=== PATIENT | female | born 1995 | race Caucasian/White ===

== ENCOUNTER 2017-03-05 08:53 | Inpatient (IN) | payer BC ==
[~2017-03-05 08:53] MED LIST: Buffered Lidocaine 0.9% SYRIN* 5 ML/SYR SYRINGE INTRADERM ONE; Buffered Lidocaine 0.9% SYRIN* 5 ML/SYR SYRINGE ONE; Clindamycin 900 MG IVPREMIX(* 900 MG/50 ML SDV IV ONE; Famotidine TAB* 20 MG ONE; Famotidine TAB* 20 MG PO ONE; Heparin VIAL(*) 5000 UNITS/ML VIAL (FIVE THOUSAND) ONE; Ibuprofen TAB* 400 MG ONE; Ibuprofen TAB* 400 MG PO ONE; Metoclopramide TAB* 10 MG ONE; Metoclopramide TAB* 10 MG PO ONE; Scopolamine 1.5 mg* PATCH ONE; Scopolamine 1.5 mg* PATCH TRANSDERM ONE; Sodium Citrate/Citric Acid* 15 ML UDC ONE; Sodium Citrate/Citric Acid* 15 ML UDC PO ONE; ceFAZolin 1 GM ADVAN(*) 1 GM ADDV.VIAL IVPB ONE; ceFAZolin 2 GM PREMIX (*) 50 ML IVPB ONE
[2017-03-05] MEDS ORDERED: Bupivacaine 0.25% SDV* 30 ML ONE (11:45)
[2017-03-05] MEDS ORDERED: fentaNYL* 50 MCG/ML 2 ML VIAL (100 MCG VIAL) ONE ×5 (11:52→15:00)
[2017-03-05] MEDS ORDERED: Midazolam* 1 MG/ML 2 ML VIAL (2 MG) ONE (11:52)
[2017-03-05] MEDS ORDERED: Dexamethasone IV* 4 MG/ML 1 ML (4 MG) ONE (11:57)
[2017-03-05] MEDS ORDERED: Propofol* 10 MG/ML 20 ML BTL IV PUSH ONE ×2 (11:57→13:04)
[2017-03-05] MEDS ORDERED: Atracurium* 10 MG/ML 10 ML VIAL ONE (11:57)
[2017-03-05] MEDS ORDERED: Lidocaine 2% PF * 5 ML VIAL ONE (11:57)
[2017-03-05] MEDS ORDERED: EPHEDrine (Pressors)* 50 MG/ML VIAL ONE (12:47)
[2017-03-05] MEDS ORDERED: DiMENhydriNATE IV* 50 MG/ML VIAL IV PUSH PRN (13:10)
[2017-03-05] MEDS ORDERED: Ketorolac INJ* 30 MG/ML 1 ML VIAL IV PRN (13:10)
[2017-03-05] MEDS ORDERED: Atropine 1MG/ML INJ* 1 ML VIAL ONE (13:31)
[2017-03-05] MEDS ORDERED: LORazepam INJ* 2 MG/ML 1 ML VIAL IV PUSH PRN (13:51)
--- NOTE | 2017-03-05 13:55 | PN ---
Progress Note - Progress Note Date of Service: 03/05/17 Note: Brief Operative Nte: Pre-op: Morbid obesity Post-op; Same Procedure: Laparoscopic sleeve gasterectomy Surgeon: Dr. Tucker Edge Trimmer: Fredy Bowens Fluids: LR 1000 cc EBL: Minimal Catheter: None Drains: None Specimen: Portion of stomach Findings: See dictated op note
[2017-03-05] MEDS ORDERED: HYDROmorphone* 1 MG/ML 1 ML SYR ONE ×3 (13:57→17:02)
[2017-03-05] MEDS ORDERED: Ketorolac INJ* 30 MG/ML 1 ML VIAL ONE (13:58)
[2017-03-05] MEDS ORDERED: Ondansetron INJ* 2 MG/ML VIAL ONE (13:58)
[2017-03-05] MEDS: Ondansetron INJ* 2 MG/ML VIAL IV PRN ×2 (13:59→19:38)
[2017-03-05] MEDS: fentaNYL* 50 MCG/ML 2 ML VIAL (100 MCG VIAL) IV PRN ×5 (14:00→15:01)
[2017-03-05] MEDS: HYDROmorphone* 1 MG/ML 1 ML SYR IV PRN ×7 (14:01→20:07)
[2017-03-05] MEDS ORDERED: DiMENhydriNATE IV* 50 MG/ML VIAL ONE (14:16)
[2017-03-05] MEDS ORDERED: Acetaminophen IV 1GM/100ML * 100 ML ONE (16:27)
[2017-03-05] MEDS ORDERED: Acetaminophen IV 1GM/100ML * 1,000 MG/100 ML VIAL IVPB ONE (16:27)
[2017-03-05] MEDS: Pantoprazole IV* 40 MG IV SCH (16:28)
[2017-03-05] MEDS: Ketorolac INJ* 30 MG/ML 1 ML VIAL IV PRN (19:36)
[2017-03-06] MEDS ORDERED: DiMENhydriNATE IV* 50 MG/ML VIAL ONE (00:40)
[2017-03-06] MEDS ORDERED: DiMENhydriNATE IV* 50 MG/ML VIAL IV PUSH ONE (00:40)
[2017-03-06] MEDS ORDERED: DiMENhydriNATE IV* 50 MG/ML VIAL IV PUSH PRN (00:59)
[2017-03-06] MEDS: Ketorolac INJ* 30 MG/ML 1 ML VIAL IV PRN ×4 (01:22→23:59)
--- NOTE | 2017-03-06 02:29 | OP ---
CC: Brain Rehman NP, at [facility] * DATE OF OPERATION: 03/05/17 - ROOM #353 DATE OF : 89 SURGEON: Nino Tucker MD RN PERIOPERATIVE: ADOLPH Kelley ANESTHESIOLOGIST: Pio Cody MD ANESTHESIA: General endotracheal. PRE-OP DIAGNOSIS: Morbid obesity. POST-OP DIAGNOSIS: Morbid obesity. OPERATIVE PROCEDURE: Laparoscopic sleeve gastrectomy. ESTIMATED BLOOD LOSS: Minimal. IV FLUIDS: Crystalloids. SPECIMEN: Portion of the stomach. DRAINS: None. COMPLICATIONS: None. COUNTS: Instrument, needle, and sponge counts were correct. DESCRIPTION OF PROCEDURE: The patient was brought to the operating room and placed on the table supine. Sequential compression devices were placed on both lower extremities and general anesthesia was administered. The abdomen was prepped and draped in usual sterile fashion. She received appropriate intravenous antibiotics. Time-out was performed. Local anesthetic was infiltrated into the skin and soft tissue prior to making each incision. I entered into the abdomen through a left upper quadrant incision accommodating a 5-mm optical trocar. After accessing the peritoneal cavity, carbon dioxide was insufflated to a pressure of 15 mmHg. Under direct visualization, 12- mm bladeless trocars was placed in the supraumbilical midline and a second in the right upper quadrant. A 5-mm trocar was were placed in the left upper quadrant laterally. A Tobias liver retractor was placed percutaneously in the subxiphoid position and used to elevate the left lobe of the liver. Inspection of the liver did not reveal any evidence of liver lesions in either the left or right lobe. The gastric anatomy appeared normal. Pylorus was identified and 6 cm proximal to this, skeletonization of the greater curvature was performed with a LigaSure. The lesser sac was entered and any filmy adhesions in the lesser sac were also divided. The left pillar of the diaphragm was clearly visualized and dissection was performed to mobilize the stomach away from this. Next, a sleeve gastrectomy was performed over a 40-Faroese bougie using the EndoGIA stapler with purple reinforced staple cartridges. After this, sleeve gastrectomy was performed The bougie was removed without difficulty and hemostasis was assured. The portion of the stomach that had been transected was retrieved using endoscopic retrieval bag through the right upper quadrant incision. The ports were removed under direct visualization, carbon dioxide was released. The wounds were closed with mumtaz for the skin. Dressings were applied. The patient tolerated the procedure well, and was extubated and transferred to the recovery room in stable condition. [id number] #: [id number] MTDD
[2017-03-06] MEDS: Heparin VIAL(*) 5000 UNITS/ML VIAL (FIVE THOUSAND) SUBCUT SCH ×3 (06:03→22:14)
[2017-03-06] MEDS: Ondansetron INJ* 2 MG/ML VIAL IV PRN ×2 (06:08→13:19)
--- NOTE | 2017-03-06 10:54 | SURGPN ---
Subjective - Introduction -: [ Admitted on: 03/05/2017 Patient's surgical date: 03/05/2017 Procedure completed: 03/05/2017 Patient seen and examined by Dr. Tucker earlier this AM. Reports doing well. Some nausea last night, relieved with Zofran. Denies nausea or vomiting this AM. Started bariatric clear liquids stage I diet. No fever or chills. Mild incisional pain. Ambulatory. - Medications -: Active Medications Generic Name Dose Route Start Last Admin Trade Name Freq PRN Reason Stop Dose Admin Heparin Sodium (Porcine) 5,000 units 03/06/17 06:00 03/06/17 06:03 Heparin Vial(*) SUBCUT 5,000 units Q8HR BRITTNEY Administration Hydromorphone HCl 0.5 mg 03/05/17 13:48 03/05/17 20:07 Dilaudid Iv* IV 0.5 mg Q3H PRN Administration PAIN - SEVERE Potassium Chloride/Dextrose 1,000 mls @ 125 mls/hr 03/06/17 13:49 D5w 1/2 Ns Kcl 20 Meq 1000 Ml* IV PER RATE BRITTNEY Lactated Ringer's 1,000 mls @ 150 mls/hr 03/05/17 14:00 03/06/17 06:35 Lactated Ringers 1000 Ml Bag* IV 03/06/17 13:49 150 mls/hr PER RATE BRITTNEY Administration Ketorolac Tromethamine 30 mg 03/05/17 13:48 03/06/17 07:23 Toradol Inj* IV 03/07/17 13:49 30 mg Q6H PRN Administration PAIN Lorazepam 0.5 mg 03/05/17 13:51 03/06/17 06:21 Ativan Inj* IV PUSH 0.5 mg Q6H PRN Administration ANXIETY Ondansetron HCl 4 mg 03/05/17 13:48 03/06/17 06:08 Zofran Inj* IV 4 mg Q6H PRN Administration NAUSEA/VOMITING Pantoprazole Sodium 40 mg 03/05/17 14:00 03/05/17 16:28 Protonix Iv* IV 40 mg Q24H BRITTNEY Administration Pharmacy Profile Note 1 note 03/08/17 06:00 Scopolomine Patch Remove* PATCH OFF 03/08/17 06:01 ONCE ONE Objective - Objective -: Awake and alert, comfortable in bed, in NAD - Intake and Output -: Intake & Output 03/04/17 03/05/17 03/06/17 03/07/17 06:59 06:59 06:59 06:59 Intake Total 3542 Output Total 2550 Balance 992 Weight 297 lb Intake: IV Fluids 3438 3 GM CEFAZOLIN 100 CLINDAMYCIN 900 MG 50 LR 3288 IVPB 104 LR 104 Oral 0 Output: Urine 2550 Surgical Physical Exam - Comments -: VSS, afebrile Lungs CTA bilat. Heart RRR, no murmurs Abdomen soft, NT, ND. Incisions clean, dry and intact. No guarding or rigidity. Ext. no edema Assessment and Plan - Assessment -: A 21 y/o female POD#1, s/p laparoscopic sleeve gastrectomy, doing well. - Plan Additional Comments: Ambulate as tolerated. Bariatric clears stage I diet Home in AM 03/07
[2017-03-06] MEDS: D5W 1/2 NS KCl 20 Meq 1000 ML* 1,000 ML IV SCH ×2 (13:18→21:41)
[2017-03-06] MEDS: Pantoprazole IV* 40 MG IV SCH (13:24)
[2017-03-06] MEDS: HYDROcodone/ACET. 7.5/325 LIQ* 15 ML UDC PO PRN (19:40)
[2017-03-07] MEDS: D5W 1/2 NS KCl 20 Meq 1000 ML* 1,000 ML IV SCH (05:36)
[2017-03-07] MEDS: Heparin VIAL(*) 5000 UNITS/ML VIAL (FIVE THOUSAND) SUBCUT SCH (05:49)
--- NOTE | 2017-03-07 08:13 | SURGPN ---
Subjective - Introduction -: Reports doing much better today. Denies any abdominal pain, nausea or vomiting. Tolerating bariatric stage I diet. Passing flatus. Ready to go home. - Medications -: Active Medications Generic Name Dose Route Start Last Admin Trade Name Freq PRN Reason Stop Dose Admin Hydrocodone Bitart/Acetaminophen 15 ml 03/06/17 11:47 03/06/17 19:40 Nortab 7.5/325 Liq* PO 15 ml Q6H PRN Administration PAIN Heparin Sodium (Porcine) 5,000 units 03/06/17 06:00 03/07/17 05:49 Heparin Vial(*) SUBCUT 5,000 units Q8HR BRITTNEY Administration Hydromorphone HCl 0.5 mg 03/05/17 13:48 03/05/17 20:07 Dilaudid Iv* IV 0.5 mg Q3H PRN Administration PAIN - SEVERE Potassium Chloride/Dextrose 1,000 mls @ 125 mls/hr 03/06/17 13:49 03/07/17 05 :36 D5w 1/2 Ns Kcl 20 Meq 1000 Ml* IV 125 mls/hr PER RATE BRITTNEY Administration Ketorolac Tromethamine 30 mg 03/05/17 13:48 03/06/17 23:59 Toradol Inj* IV 03/07/17 13:49 30 mg Q6H PRN Administration PAIN Lorazepam 0.5 mg 03/05/17 13:51 03/06/17 06:21 Ativan Inj* IV PUSH 0.5 mg Q6H PRN Administration ANXIETY Ondansetron HCl 4 mg 03/05/17 13:48 03/06/17 13:19 Zofran Inj* IV 4 mg Q6H PRN Administration NAUSEA/VOMITING Pantoprazole Sodium 40 mg 03/05/17 14:00 03/06/17 13:24 Protonix Iv* IV 40 mg Q24H BRITTNEY Administration Pharmacy Profile Note 1 note 03/08/17 06:00 Scopolomine Patch Remove* PATCH OFF 03/08/17 06:01 ONCE ONE Objective - Objective -: Awake and alert, sitting on her bed, in NAD - Intake and Output -: Intake & Output 03/05/17 03/06/17 03/07/17 03/08/17 06:59 06:59 06:59 06:59 Intake Total 3542 3603 Output Total 8500 4450 Balance 992 -847 Weight 297 lb Intake: IV Fluids 3438 2943 3 GM CEFAZOLIN 100 CLINDAMYCIN 900 MG 50 D5 1/2 NS 20KCL 1963 LR 3288 980 IVPB 104 LR 104 Oral 0 660 Output: Urine 2550 4450 Other: # Bowel Movements 0 Surgical Physical Exam - Comments -: VSS, afebrile Lungs CTA bilat. Heart RRR, no murmurs Abdomen soft, NT, ND. Incisions C/D/I, dressing removed. No guarding or rigidity. Ext. without edema Assessment and Plan - Assessment -: A 21 y/o female, POD#2, s/p laparoscopic sleeve gastrectomy, doing very well. - Plan Additional Comments: D/C to home today. Plan to see her in office next week for F/U and staple removal
[2017-03-07 08:31] VITALS: BP 133/83
[2017-03-07] MEDS: HYDROcodone/ACET. 7.5/325 LIQ* 15 ML UDC PO PRN (08:36)
[2017-03-07] MEDS: Ondansetron INJ* 2 MG/ML VIAL IV PRN (08:45)
--- NOTE | 2017-03-07 23:40 | DS ---
DISCHARGE SUMMARY: DATE OF ADMISSION: 03/05/17 DATE OF DISCHARGE: 03/07/17 ADMISSION DIAGNOSIS: Morbid obesity. DISCHARGE DIAGNOSIS: Morbid obesity. ADMITTING PHYSICIAN: Nino Tucker MD * (DICTATED BY ADOLPH JEFFERY) CONSULTATIONS: None. PROCEDURE: Laparoscopic sleeve gastrectomy on 03/05/17. BRIEF MEDICAL HISTORY: Mely is a pleasant 21-year-old female who was seen at the [facility] regarding bariatric surgery. The patient had been suffering from excessive body weight that led to other comorbidities including early type 2 diabetes mellitus as well as arthritic aches and pains. She was evaluated in the bariatric office and was found to be a good candidate for a laparoscopic sleeve gastrectomy and was electively scheduled to be performed by Dr. Tucker at a later date. HOSPITAL COURSE: The patient was admitted via same-day surgery in anticipation for her procedure. She was taken to the operating room on 03/05/17 where she had a laparoscopic sleeve gastrectomy that was essentially unremarkable. After recovery, she went to that surgical floor where she had done extremely well. On the first night postoperatively, she complained of some nausea that was tolerated using Zofran as needed. She had minimal incisional discomfort and denied any significant abdominal pain. She was ambulatory out of bed and in a stable condition. On the following morning, she started her stage I bariatric clear liquid diet that she tolerated well. She continued to improve later that day and on the following morning on the postop day #2, she was ready to be discharged. She was ambulatory out of bed and she continued to do well tolerating her diet and denied any complaints of nausea, vomiting, or abdominal pain. She will be discharged home today in a stable condition and will be followed up in the office next week for staple removal. DISCHARGE MEDICATIONS: Include omeprazole 40 mg daily, to open the capsule and use with juice, as well as Lortab Elixir 7.5/325 per tablespoon 1 tablespoon q.6 hours as needed for pain. All her other medications will be on hold for now until seen by her primary care physician that includes: 1. Xanax 0.25 p.o. b.i.d. 2. Mirena IUD. 3. Metformin 500 mg tablets daily. 4. Zoloft 100 mg p.o. daily as well. 5. Aldactone 100 mg p.o. daily. PROBLEM LIST: Morbid obesity, status post laparoscopic sleeve gastrectomy on . ADOLPH JEFFERY [id number]/[facility] #: [id number] MTDAndrea
[2017-03-08] MEDS ORDERED: Scopolomine PATCH Remove* 1 NOTE MISC PATCH OFF ONE (06:00)
== END 2017-03-07 10:10 | disposition home or self-care (01) | DRG 403 ==
LOC: AA 08:53 → SSU 17:04
PROVIDERS: ADMIT Surgery; ATTEND Surgery
PROC: 0DB64Z3 Excision of Stomach, Percutaneous Endoscopic Approach, Vertical (ICD-10-PCS; principal; 2017-03-05 10:15)
DX: E66.01 Morbid (severe) obesity due to excess calories (principal); F32.9 Major depressive disorder, single episode, unspecified; M19.90 Unspecified osteoarthritis, unspecified site; E11.9 Type 2 diabetes mellitus without complications; R11.0 Nausea; K21.9 Gastro-esophageal reflux disease without esophagitis; G47.33 Obstructive sleep apnea (adult) (pediatric); F41.9 Anxiety disorder, unspecified; E28.2 Polycystic ovarian syndrome; Z82.49 Family history of ischemic heart disease and other diseases of the circulatory system; Z79.84 Long term (current) use of oral hypoglycemic drugs; Z88.8 Allergy status to other drugs, medicaments and biological substances; Z83.49 Family history of other endocrine, nutritional and metabolic diseases; Z84.89 Family history of other specified conditions; Z68.42 Body mass index [BMI] 45.0-49.9, adult
CPT/HCPCS: 43775; 81025; 88307; A9270-GY; J0461; J0690; J1100; J1170; J1240; J1644; J1885; J2060; J2250; J2405; J2704; J3010